=== PATIENT | female | born 1980 | race African-American/Black ===

== ENCOUNTER 2025-03-27 16:35 | Emergency (ER) | payer OTHER ==
[~2025-03-27] VITALS: Ht 149.9 cm; Wt 65.9 kg
[2025-03-27 16:48] VITALS: BP 108/55; PULSE 85; RESP 18; TEMP 98.4; O2SAT 96
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
[2025-03-27] MEDS ORDERED: HYDR-4902 PO (18:27)
[2025-03-27] MEDS ORDERED: HYDROcodone-ACET 10/325MG TAB PO ONE (18:30)
== END 2025-03-27 21:39 | disposition home or self-care (01) ==
LOC: EDBD 16:35 → ER 16:35
DX: S20.211A Contusion of right front wall of thorax, initial encounter (principal); S50.11XA Contusion of right forearm, initial encounter; Z88.0 Allergy status to penicillin; V89.2XXA Person injured in unspecified motor-vehicle accident, traffic, initial encounter; Y93.I9 Activity, other involving external motion; Y92.488 Other paved roadways as the place of occurrence of the external cause; Y99.8 Other external cause status
CPT/HCPCS: 71046; 73090